=== PATIENT | female | born 1970 | race Asian ===

== ENCOUNTER → 2018-07-16 | Outpatient (CLI) | payer OTHER | LOC: BRMIMAGING 10:46 | DX: Z12.31 Encounter for screening mammogram for malignant neoplasm of breast (principal) ==

== ENCOUNTER → 2018-08-01 | Outpatient (CLI) | payer OTHER | LOC: BRMIMAGING 09:11 | PROVIDERS: ATTEND Family Medicine | DX: R92.8 Other abnormal and inconclusive findings on diagnostic imaging of breast (principal) ==